=== PATIENT | male | born 1955 | race Caucasian/White ===

== ENCOUNTER 2018-10-23 20:57 | Emergency (ER) | payer MEDICARE ==
[~2018-10-23 20:57] MED LIST: ISOVUE-370 76%-LOCM 1 ML ONE
[2018-10-23 22:56] LABS: #Basophils 0.1 thou/uL (0.0-0.2); #Eosinphils 0.2 thou/uL (0.0-0.7); #Lymphocytes 3.1 thou/uL (1.20-3.40); #Monocytes 0.5 thou/uL (0.11-0.59); #Neutrophils 2.9 thou/uL (1.40-6.50); %Basophils 1.3 % (0.0-1.0); %Eosinophils 2.9 % (0.0-10.0); %Lymphocytes 45.4 % (21.0-51.0); %Monocytes 7.1 % (0.0-10.0); %Neutrophils 43.3 % (42.0-75.0); Hemoglobin 16.6 g/dL (14.0-18.0); Mean Corpuscular HGB CONC 32.8 g/dL (32.0-36.0); Mean Corpuscular Hemoglobin 29.7 pg (27.0-31.0); Mean Corpuscular Volume 90.4 fL (78.0-98.0); Mean Platelet Volume 7.2 fL (7.4-10.4); Platelet Count 217 thou/uL (130-400); RBC Distribution Width 11.7 % (11.5-14.5); Red Blood Cell (RBC) Count 5.59 mill/uL (4.70-6.10); White Blood Cell (WBC) Count 6.8 thou/uL (4.8-10.8)
[2018-10-23 23:20] LABS: ALT (SGPT) 20 U/L (8-55); AST (SGOT) 17 U/L (5-34); Albumin 4.3 g/dL (3.4-4.8); Alkaline Phosphatase 62 U/L (40-150); Anion Gap 13 mmol/L (10-20); BUN (Urea Nitrogen) 15 mg/dL (8.4-25.7); Bilirubin, Total 0.4 mg/dL (0.2-1.2); Calc. Creatinine Clearance 0 mL/min (70-130); Calcium 9.5 mg/dL (7.8-10.44); Carbon Dioxide 23 mmol/L (23-31); Chloride 104 mmol/L (98-107); Estimated GFR-MDRD Greater than 90; Glucose 248 mg/dL (80-115); Lipase 17 U/L (8-78); Potassium 4.1 mmol/L (3.5-5.1); Protein, Total 7.3 g/dL (5.8-8.1); Sodium 136 mmol/L (136-145)
--- NOTE | 2018-10-24 00:04 | CT ---
CT ABDOMEN AND PELVIS WITH IV CONTRAST 10/23/18 HISTORY: Lower abdominal pain. FINDINGS: There are no previous exams for comparison. The lung bases are unremarkable. No free air, free fluid or lymphadenopathy seen in the abdomen or pe lvis. The liver, spleen, pancreas and adrenal glands are normal. There are cysts in the kidneys. A ci rcumaortic left renal vein is present. No calcified gallstones are noted. There are vascular calcifications without evidence of aneurysmal dilatation of the abdominal aorta. D egenerative changes are present in the spine. IMPRESSION: No evidence of acute process. POS: [facility]
[2018-10-24] MEDS ORDERED: HYDROcodone/Acetaminophen 5/325 mg Tablet ONE (01:05)
[2018-10-24 01:13] LABS: Bilirubin Negative (Negative); Blood, Urine Negative (Negative); Clarity CLEAR (Clear); Glucose, Urine (Dipstick) >=1000 mg/dL (Negative); Leukocyte Negative (Negative); Nitrite Negative (Negative); Protein, Urine (Dipstick) Negative (Neg-Trace); pH, Urine 5.5 (5.0-9.0)
[2018-10-24 01:17] LABS: Specific Gravity, Urine Greater than 1.060 (1.002-1.036)
== END 2018-10-24 02:02 | disposition home or self-care (01) ==
LOC: ERS 20:57
DX: R10.30 Lower abdominal pain, unspecified (principal); F32.9 Major depressive disorder, single episode, unspecified; E11.9 Type 2 diabetes mellitus without complications; F17.210 Nicotine dependence, cigarettes, uncomplicated
CPT/HCPCS: 36415; 74177; 80053; 81003; 83690; 85025; Q9966

== ENCOUNTER 2018-12-17 14:21 | Observation (INO) | payer MEDICARE ==
[2018-12-17 14:50] LABS: #Eosinphils 0.2 thou/uL (0.0-0.7); #Monocytes 0.4 thou/uL (0.11-0.59); %Basophils 0.7 % (0.0-1.0); %Eosinophils 2.7 % (0.0-10.0); %Lymphocytes 30.1 % (21.0-51.0); %Monocytes 6.2 % (0.0-10.0); %Neutrophils 60.2 % (42.0-75.0); Hemoglobin 15.1 g/dL (14.0-18.0); Mean Corpuscular HGB CONC 34.4 g/dL (32.0-36.0); Mean Corpuscular Hemoglobin 31.4 pg (27.0-31.0); Mean Corpuscular Volume 91.2 fL (78.0-98.0); Mean Platelet Volume 7.1 fL (7.4-10.4); Platelet Count 211 thou/uL (130-400); RBC Distribution Width 11.6 % (11.5-14.5); White Blood Cell (WBC) Count 6.7 thou/uL (4.8-10.8)
[2018-12-17 15:21] LABS: ALT (SGPT) 25 U/L (8-55); AST (SGOT) 16 U/L (5-34); Albumin 3.7 g/dL (3.4-4.8); Alkaline Phosphatase 52 U/L (40-150); Anion Gap 12 mmol/L (10-20); BUN (Urea Nitrogen) 21 mg/dL (8.4-25.7); Bilirubin, Total 0.3 mg/dL (0.2-1.2); CK (CPK) 52 U/L (30-200); Calc. Creatinine Clearance 0 mL/min (70-130); Calcium 8.8 mg/dL (7.8-10.44); Carbon Dioxide 23 mmol/L (23-31); Chloride 110 mmol/L (98-107); Estimated GFR-MDRD Greater than 90; Globulin 2.3 g/dL (2.4-3.5); Glucose 66 mg/dL (80-115); Lipase 18 U/L (8-78); Sodium 141 mmol/L (136-145)
--- NOTE | 2018-12-17 15:46 | CT ---
CT abdomen with contrast CT pelvis with contrast: DATE: 12/17/2018 HISTORY: 63-year-old male with left lower quadrant abdominal pain COMPARISON: 10/23/2018 TECHNIQUE: IV injection of iodinated contrast media:Administered Oral contrast media:Not administered FINDINGS: Tiny calculus at right renal midpole. Multiple right renal cysts. Several tiny left renal cysts. Athe rosclerotic calcification without aneurysm of abdominal aorta. No major pathology of adrenals, pancreas, liver, spleen, or urinary bladder. No ascites or pneumoperitoneum. Normal appendix. No sign s of diverticulitis. Lung bases demonstrate no consolidation or pleural effusion. Retroaortic left renal vein. No interval change overall. IMPRESSION: 1) no acute findings. 2) minimal right nephrolithiasis. 3) right lower renal cysts, right greater than left.
[2018-12-17 17:01] LABS: Bilirubin Negative (Negative); Blood, Urine Negative (Negative); Clarity CLEAR (Clear); Glucose, Urine (Dipstick) Negative (Negative); Leukocyte Negative (Negative); Nitrite Negative (Negative); Protein, Urine (Dipstick) Negative (Neg-Trace); Specific Gravity, Urine 1.034 (1.002-1.036); Urobilinogen 0.2 mg/dL (0.2-1.0); pH, Urine 7.5 (5.0-9.0)
[2018-12-17] MEDS: Sodium Chloride 0.9% 1,000 ML IV SCH ×2 (17:30→20:36)
[2018-12-17 17:34] VITALS: BMI 30.4
[2018-12-17] MEDS ORDERED: Dextrose 5% in Water 1,000 ML IV PRN (19:11)
[2018-12-17] MEDS ORDERED: Insulin Regular 300 UNITS/3 ML VIAL SC PRN (19:11)
[2018-12-17] MEDS ORDERED: Dextrose 50% Abboject 50 ML SYRINGE IVP PRN (19:11)
[2018-12-17] MEDS: Gabapentin 100 MG CAP PO SCH (20:36)
[2018-12-18] MEDS: Sodium Chloride 0.9% 1,000 ML IV SCH ×3 (01:25→08:33)
[2018-12-18 01:52] LABS: Amphetamine Detected (NotDetected); Barbiturates Screen Not Detected (NotDetected); Benzodiazepine Screen Not Detected (NotDetected); Cocaine Metabolite Screen Not Detected (NotDetected); Medtox Control Line Valid? VALID (VALID); Medtox Reader # READER 4; Methadone Not Detected (NotDetected); Methamphetamine Not Detected (NotDetected); Opiate Screen Not Detected (NotDetected); Oxycodone Screen Not Detected (NotDetected); Phencyclidine (PCP) Not Detected (NotDetected); THC/Cannabinoid Screen Detected (NotDetected); Tricyclic Screen Not Detected (NotDetected)
--- NOTE | 2018-12-18 07:29 | RAD ---
CHEST 1 VIEW: Date: 12/18/18 INDICATION: History is that physician ordered chest radiograph. Chest pain. FINDINGS: Lungs are clear. Heart size is normal. No acute osseous abnormality is evident. IMPRESSION: No acute cardiopulmonary abnormality. POS: [facility]
[2018-12-18] MEDS: Gabapentin 100 MG CAP PO SCH (08:26)
[2018-12-18] MEDS ORDERED: Atorvastatin Calcium 40 MG TAB PO SCH (09:00)
[2018-12-18 11:15] VITALS: BP 143/70; TEMP 97.7
--- NOTE | 2018-12-18 12:42 | HP ---
CHIEF COMPLAINT: Abdominal pain and hypotension. HISTORY OF PRESENT ILLNESS: Mr. Feng is a 63-year-old male with past medical history of hypotension, diabetes, and chronic abdominal pain, came to my office complaining of pain, but while in the office, the patient became diaphoretic and hypotensive and blood pressure was 77/40 in the office. The patient is diaphoretic as well as decrease in mental status. EMS was called and the patient was brought to the hospital. According to his family, the patient took all his medications including insulin and ate very well. The patient was evaluated in the ER, found to have mild dehydration and was given IV fluids. Workup in the ER was unremarkable including CT of the abdomen. The patient's states he has had this abdominal pain for last few months and it comes and goes. Stays for few days, goes away, and comes back. Pain is mainly in the lower abdomen. No nausea, vomiting , or diarrhea. PAST MEDICAL HISTORY: 1. Insulin dependent diabetes mellitus. 2. Hypotension. 3. Hyperlipidemia. 4. Depression. PAST SURGICAL HISTORY: Status post hernia repair. CURRENT MEDICATIONS: The patient is on: 1. Lipitor 40 mg daily. 2. Enalapril 10 mg daily. 3. Gabapentin 200 t.i.d. 4. Glipizide 10 mg b.i.d. 5. NovoLog insulin 65 in the morning and 55 in the evening.. 6. Metformin 500 b.i.d. 7. Zoloft 50 mg daily. FAMILY HISTORY: Nothing contributory. SOCIAL HISTORY: The patient lives with the family. He is smoking 1-1/2 packs a day. No history of alcohol intake. REVIEW OF SYSTEMS: CARDIOVASCULAR: No chest pain. No shortness of breath. RESPIRATORY: No fever or cough. GASTROINTESTINAL: Has abdominal pain. No nausea or vomiting. CENTRAL NERVOUS SYSTEMS: No headache or dizziness. PHYSICAL EXAMINATION: GENERAL: The patient is awake, not very alert. VITAL SIGNS: Temperature 98, pulse 60, respiratory rate 20, blood pressure 105/60 HEENT: Head is normocephalic and atraumatic. Pupils are equal and reactive. Nasopharynx is pale and dry. Hard and soft palate, no lesions. SKIN: Turgor decreased. NECK: Supple. No JVD. LUNGS: Bilateral air entry. No rales, no rhonchi. HEART: S1 and S2. Regular. ABDOMEN: Soft. No distention. It is tender in the left lower quadrant area. No guarding. No rigidity. Normal bowel sounds. RECTAL: Deferred. CENTRAL NERVOUS SYSTEM: No focal deficits. LABORATORY DATA: CBC shows WBC 6.7, hemoglobin 15, hematocrit 43, platelets 11. Metabolic panel; sodium 140, potassium 4, chloride 110, CO2 23, BUN 21, creatinine 0.7, glucose 66. Urinalysis negative. EKG showed sinus bradycardia with heart rate of 56. No acute ST-T changes seen. CT scan of the abdomen showed no acute findings. Minimal right nephrolithiasis and right renal cyst. ASSESSMENT: 1. Hypotension. 2. Abdominal pain, left lower quadrant, acute on chronic. 3. Encephalopathy, metabolic. 4. Diabetes mellitus. 5. Tobacco abuse. PLAN: 1. Vital signs q.4 hours. 2. Activity as tolerated. 3. Allergies; NKDA. 4. IV fluids, normal saline at 80 mL/h. 5. Continue home medications. 6. Hold metformin, glipizide, and insulin. 7. Accu-Chek before meals and at bedtime with sliding scale mildly with regular insulin. 8. GI consult. Job ID: [id number]
--- NOTE | 2018-12-18 17:10 | CON ---
DATE OF CONSULTATION: 12/18/2018 I was asked to see this patient by Dr. Greene with regard to abdominal pain. HISTORY OF PRESENT ILLNESS: Mr. Szymanski is a 63-year-old gentleman with diabetes, who was admitted to observation yesterday for chronic left inguinal pain. He came to hospital on 10/23/2018 with the same. He states this began back in July. It has been progressively getting worse. It is on and off. The ER note reports it is abdominal pain, but when you ask him, he states that he has been trying to explain to people that it is not his abdomen and it is left groin and suprapubic region. He states the pain comes and goes. There is no relation to bowel movements or eating. There is no relation to movement. He has no fever or chills. He has some dysuria and urgency at night and has difficult time with dribbling. He denies any hematuria, fever, chills, or back pain. He denies any blood in the stool, melena, hematochezia, or hematemesis. He denies any change in weight or appetite. He has had no fever or chills. No rashes, myalgias, or arthralgias. The pain does radiate to the left groin and testicle area at times. In the emergency room in October, he was sent home with some hydrocodone, after having a normal CT scan of the abdomen and pelvis on 10/23/2018. This is with IV contrast only. He returned to the emergency room again yesterday. He reports the pain intermittently comes in waves. He has stable vital signs. He was afebrile in the emergency room. He was admitted to observation with Dr. Greene. Apparently, he had seen Dr. Greene in the office yesterday and he is complaining of pain, it became diaphoretic and hypotensive, some mental status changes as well. In the emergency room, he apparently was found to have mild dehydration. Again, he had a CAT scan of the abdomen and pelvis in the emergency room with contrast that showed minimal right nephrolithiasis, right lower renal cyst. No overt abnormalities were found for his pain. Presently, the patient states his pain is better. PAST MEDICAL HISTORY: 1. Diabetes, insulin dependent. 2. Hyperlipidemia. 3. Depression. PAST SURGICAL HISTORY: Right inguinal hernia repair. MEDICATIONS: At home; 1. Lipitor. 2. Enalapril. 3. Gabapentin. 4. Glipizide. 5. Insulin 65 units in the morning, 55 in the evening. 6. Metformin 500 b.i.d. 7. Zoloft. FAMILY HISTORY: Negative for colorectal cancer or liver disease. SOCIAL HISTORY: The patient lives with his . He smokes about a pack to pack and a half a day. Does not drink. Denies drug use. REVIEW OF SYSTEMS: Negative for chest pain, shortness of breath, dyspnea on exertion, cough, shortness of breath, rashes, myalgias, or arthralgias. GI review of systems completely normal. Neurologic review of systems negative. Urologic review of systems notable for some dysuria and radiation pain to the left testicle. PHYSICAL EXAMINATION: VITAL SIGNS: He has been afebrile since admission. Temperature 97, pulse 58, and blood pressure is 143/70. GENERAL: He is resting comfortably in bed. He is in no distress. He is sitting up. He is eating. Oropharynx, no lesions. He has slightly poor dentition. NECK: Supple without any adenopathy. LUNGS: Clear. HEART: Regular rat and rhythm without rubs or murmurs. ABDOMEN: Soft. Positive bowel sounds. There is no rebound. There is no guarding. There is no evidence of umbilical or inguinal hernias. There is tenderness to palpation of the left inguinal ring. There is no evidence of mass or lesion of the testicle. He is tender mainly in the soft tissue of the suprapubic region and in the inguinal area in the left groin. There is no evidence of adenopathy here. There is no evidence of left lower quadrant pain tenderness. The remainder of the abdomen is benign. There is no CVA tenderness. EXTREMITIES: No clubbing, cyanosis, or edema. LABORATORY DATA: Sodium 140, potassium 4, chloride 110, bicarb 23, BUN and creatinine are 12 and 0.7, and glucose 182. Lactic acid is 1.3 on admission. LFTs completely normal. Calcium normal. Albumin 3.7, protein 6, and lipase 18. Urinalysis on the 4th showed glucose greater than 1000, trace ketones. Urinalysis done was completely normal including lack of blood. Urine drug screen positive for amphetamines, positive for cannabinoids, otherwise negative. ASSESSMENT: Left inguinal pain of unclear etiology. I have asked the nurses to go ahead and get a bladder scan to make sure he does not have any urinary retention as he has had symptoms of some bladder outlet obstruction. Reviewing his scan myself, he had no overt changes of inflammation or irregularity in the sigmoid or lower colon, other than stool. He had no signs of adenopathy in the inguinal regions. He has cyst on the right kidney. No evidence of nephrolithiasis or hydroureter. On his admission, he had no overt distention of the bladder. He had some calcifications in the prostate. No overt hernias again noted. RECOMMENDATIONS: Consider urologic evaluation and make sure he does not have any overt urinary retention. Maybe we should consider General Surgery evaluation to make sure they do not feel a hernia, although I do not feel one and I do not see one on his CAT scan. We will follow along with you. Job ID: [id number]
--- NOTE | 2018-12-19 10:46 | DIS ---
DATE OF ADMISSION: 12/17/2018 DATE OF DISCHARGE: 12/18/2018 ADMITTING DIAGNOSES: 1. Hypotension. 2. Abdominal pain, left lower quadrant. 3. Metabolic encephalopathy. 4. Diabetes mellitus. FINAL DIAGNOSES: 1. Hypotension, improved. 2. Abdominal pain also improved. He had left inguinal area pain. 3. Metabolic encephalopathy, improved. 4. Diabetes mellitus. 5. Tobacco abuse. 6. Polysubstance abuse. BRIEF SUMMARY OF HOSPITAL COURSE: Mr. Feng is a 63-year-old male who was admitted to hospital for hypotension. The patient is seen in the office and was hypotensive. He was sent to the emergency room where he was hypotensive, given IV fluids, was evaluated for abdominal pain. Abdominal CT scan was unremarkable pt was admitted for evaluation and further management. DISCHARGE MEDICATIONS.: 1. Insulin Novolog Flexpen 65 units subcu every evening 2. Insulin Novolog Flexpen 55 units subcu every morning. 3. Metformin 500 mg b.i.d. 4. Glipizide 10 mg b.i.d. 5. Lipitor 40 mg daily 6. Enalapril 10 mg daily. 7. Sertraline 50 mg daily. 8. Gabapentin 200 mg t.i.d. Job ID: [id number] [id number]
== END 2018-12-18 14:05 | disposition home or self-care (01) ==
LOC: ERS 14:21 → 2SW 15:58
PROVIDERS: ADMIT Internal Medicine; ATTEND Internal Medicine
DX: I95.9 Hypotension, unspecified (principal); G89.29 Other chronic pain; R10.32 Left lower quadrant pain; G93.41 Metabolic encephalopathy; E11.9 Type 2 diabetes mellitus without complications; E78.5 Hyperlipidemia, unspecified; F32.9 Major depressive disorder, single episode, unspecified; F17.210 Nicotine dependence, cigarettes, uncomplicated; N20.0 Calculus of kidney; Q61.02 Congenital multiple renal cysts; I70.0 Atherosclerosis of aorta; Z79.4 Long term (current) use of insulin; Z79.899 Other long term (current) drug therapy; Z98.890 Other specified postprocedural states
CPT/HCPCS: 71045; 74177; 80053; 80306; 81003; 82550; 82962 ×2; 83605; 83690; 84484; 85025; 93005; 96360; 96361 ×3; 99285; G0378 ×2; 36415; 36416; Q9966

== ENCOUNTER 2019-03-12 12:01 | Outpatient (CLI) | payer MEDICARE ==
--- NOTE | 2019-03-12 15:18 | ULT ---
BILATERAL TESTICULAR ULTRASOUND WITH MACARIO SCALE, COLOR FLOW AND SPECTRAL DOPPLER IMAGIN03/12/19 HISTORY: Testicular pain, trauma, injury in July 2018. FINDINGS: The right testis measures 3.9 x 2.1 x 4 cm and the left testis measures 3.8 x 2.1 x 3.4 cm. There is a 3 x 2 x 4 mm cyst in the right testis. A echogenic focus is likely calcification seen in the medial superior aspect of the right testis measuring 5 x 2 mm. Symmetric flow is demonstrated to both testi cles and epididymi. There is a 7 mm cyst in the left epididymal head. The right epididymis is normal. There are small hydroceles noted bilaterally. IMPRESSION: 1. Right testicular cyst. 2. Left epididymal head cyst/spermatocele. POS: [facility]
== END 2019-03-12 12:02 | disposition home or self-care (01) ==
LOC: BICULT 12:01
PROVIDERS: ATTEND Urology
DX: N50.819 Testicular pain, unspecified (principal); N44.2 Benign cyst of testis
CPT/HCPCS: 76870; 93976